=== PATIENT | female | born 1975 | race African-American/Black ===

== ENCOUNTER 2019-09-30 19:44 | Emergency (ER) | payer MEDICARE, OTHER ==
[~2019-09-30] VITALS: Ht 167.6 cm; Wt 83.9 kg
[~2019-09-30 19:44] MED LIST: IBUPROFEN600 MG ORAL; NKM; VALIUM5 MG ORAL
[2019-09-30 19:53] VITALS: BP 151/95
[2019-09-30] MEDS ORDERED: FAMOTIDINE20 MG ORAL (19:59)
[2019-09-30] MEDS ORDERED: BENADRYL25 MG ORAL (19:59)
--- NOTE | 2019-09-30 19:59 | Emergency Room Report ---
History of Present Illness General Chief Complaint: Skin Rash/Abscess Source: Patient, Medical Record Present Illness HPI 44-year-old female presents with rashes that come and go for the past week, she states that it become very itchy there would be raised and red, and then suddenly disappear not sure what aggravates or alleviates it, she has taken Benadryl which helps with the itching but does not help with the rash formation , severity is mild intermittent, patient denies any chest pain shortness of breath, patient presents for evaluation Allergies: Coded Allergies: No Known Allergies (Unverified , 03/04/14) Patient History Past Medical History: see triage record Reviewed Nursing Documentation: PMH: Agreed; PSxH: Agreed Nursing Documentation-PMH Past Medical History: No History, Except For Review of Systems All Other Systems: negative except mentioned in HPI Physical Exam Vital Signs Date Time Temp Pulse Resp B/P (MAP) Pulse Ox O2 Delivery O2 Flow Rate FiO2 09/30/19 19:46 97.7 72 18 151/95 (113) 99 Room Air General Appearance: well appearing, no apparent distress Head: normocephalic, atraumatic Eyes: bilateral eye PERRL, bilateral eye EOMI ENT: hearing grossly normal, normal voice Neck: full range of motion, supple Respiratory: no respiratory distress, speaking full sentences Neurologic: alert, normal gait Psychiatric: mood/affect normal Skin: no rash Medical Decision Making Diagnostic Impression: Primary Impression: Rash and other nonspecific skin eruption Additional Impression: Urticaria ER Course 44-year-old female presents with nonspecific eruptions of the skin, currently no eruptions at bedside, patient then showed me a video on her phone which reveals urticarial lesions that seem to appear and disappear Counseled patient symptomatic care most likely with urticaria differential diagnosis also includes abscess, cellulitis Disposition home with return precautions Last Vital Signs Date Time Temp Pulse Resp B/P (MAP) Pulse Ox O2 Delivery O2 Flow Rate FiO2 09/30/19 19:53 97.7 85 18 151/95 99 Room Air Disposition: HOME, SELF-CARE Condition: Stable Scripts Diphenhydramine Hcl* (BENADRYL*) 25 Mg Capsule 25 MG ORAL Q6H PRN for Itching, #30 CAP Prov: Edson Valentine MD 09/30/19 Famotidine* (Pepcid 20mg tablet*) 20 Mg Tablet 20 MG ORAL TWICE A DAY, #60 TAB 0 Refills Prov: Edson Valentine MD 09/30/19 Referrals: [facility] [place]. [facility] Patient Instructions: [place], [id number] Additional Instructions: The patient was provided with discharge instructions, notified to follow-up with a primary care doctor and or specialist in the next 24-48 hours, and to return to the ED if they have worsening of their symptoms. Please note that this report is being documented using [employer] technology. This can lead to erroneous entry secondary to incorrect interpretation by the dictating instrument. SEE ALLERGY IMMUNOLOGY, SEE DERMATOLOGY EVELYN Edson Valentine MD Sep 30, 2019 19:59
[2019-09-30 20:00] VITALS: BP 151/95
== END 2019-09-30 20:00 | disposition home or self-care (01) ==
LOC: EMR 19:57
DX: L50.9 Urticaria, unspecified (principal)
CPT/HCPCS: 99282